=== PATIENT | female | born 1990 | race Hispanic/Latino ===

== ENCOUNTER 2024-09-09 10:57 | Emergency (ER) | payer MEDICAID ==
[~2024-09-09] VITALS: Ht 154.9 cm; Wt 81.2 kg
[2024-09-09 11:39] LABS: APPEARANCE,URINE CLEAR (CLEAR); BILIRUBIN,URINE NEGATIVE (NEGATIVE); COLOR,URINE COLORLESS (YELLOW); GLUCOSE, URINE (UA) NEGATIVE (NEGATIVE); KETONES,URINE NEGATIVE (NEGATIVE); LEUKOCYTE ESTERASE ,URINE 25 Leu/uL (NEGATIVE); NITRATE,URINE NEGATIVE (NEGATIVE); OCCULT BLOOD,URINE LARGE (NEGATIVE); PH,URINE 7.5 (5.0-8.0); PROTEIN,URINE NEGATIVE (NEGATIVE); UROBILINOGEN,URINE 0.2 mg/dL (0.2-1.0)
[2024-09-09 11:42] LABS: ADD UA MICROSCOPIC YES
[2024-09-09 11:46] LABS: BACTERIA,URINE FEW /HPF (None Seen); SQUAMOUS EPITHELIAL CELL,UR RARE /HPF (0-2); WBC,URINE 0-1 /HPF (0-1)
[2024-09-09 12:23] LABS: BASOPHILS # (AUTO) 0.04 K/uL (0.00-0.20); BASOPHILS % (AUTO) 0.8 % (0.0-5.0); EOSINOPHILS # (AUTO) 0.17 K/uL (0.00-0.70); EOSINOPHILS % (AUTO) 3.2 % (0.0-8.0); HEMATOCRIT 36.6 % (36-48); IMMATURE GRANULOCYTE ABSOLUTE 0.02 K/uL (0-1); LYMPHOCYTES # (AUTO) 1.8 K/uL (1.0-4.8); LYMPHOCYTES % (AUTO) 34.6 % (21.0-51.0); MEAN CORPUSCULAR HEMOGLOBIN 29.5 pg (27.0-33.0); MEAN CORPUSCULAR HGB CONC 33.1 g/dL (32.0-36.0); MEAN CORPUSCULAR VOLUME 89.3 fL (79-99); MONOCYTES # (AUTO) 0.4 K/uL (0.1-1.0); MONOCYTES % (AUTO) 7.3 % (3.0-13.0); NEUTROPHILS # (AUTO) 2.9 K/uL (1.8-7.7); NEUTROPHILS % (AUTO) 53.7 % (40.0-77.0); PLATELET COUNT (AUTO) 220 K/uL (130-400); RED CELL DISTRIBUTION WIDTH 12.4 % (11.0-15.5); WHITE BLOOD COUNT (AUTO) 5.3 K/uL (4.8-10.8)
[2024-09-09 12:27] LABS: CREATININE 0.5 mg/dL (0.5-1.0)
[2024-09-09] MEDS: acetaMINOPHEN 325 MG TAB PO ONE (12:38)
--- NOTE | 2024-09-09 12:38 | ERN ---
General Chief Complaint: Vaginal Bleeding Stated Complaint: VAGINAL BLEEDING IN Time Seen by MD: 12:05 Time Seen by Midlevel: 12:05 Source: patient History of Present Illness Initial Comments 34-year-old female presents to the emergency department due to vaginal bleeding onset today. Per patient she was seen last week at ED in [place] due to abdominal cramping. States she is currently six weeks , , OBGYN Dr. Thorpe. Patient reports a previous molar . Denies further significant PMHx. Allergies: Coded Allergies: No Known Drug Allergies (Unverified Allergy, Unknown, 09/09/24) Past Medical History Past Medical History: No Pertinent History Past Surgical History: Female( History) LMP: Aug 02, 2024 : 5 Para: 3 Aborts: 1 ROS Dictation Constitutional: Negative for fever,chills, and weight loss Eyes: Negative for injury, pain,redness, and discharge ENT: Negative for injury,pain or swelling Cardiovascular: Negative for chest pain, palpitations, and edema Respiratory: Negative for shortness of breath, cough, and wheezing, Abdomen/GI: Positive for lower abdominal cramping Negative for nausea, vomiting, diarrhea, and constipation Back: Negative for injury and pain : Positive for vaginal bleeding Negative for painful urination, or discharge MS/Extremity: Negative for injury and deformity Skin: Negative for rash, and discoloration Neuro: Negative for headache, weakness, numbness, tingling, and seizure Psych: Negative for suicide ideation, homicidal ideation, and hallucinations Physical Exam Physical Exam Dictation General: awake, alert, no acute distress Head/Face: Normocephalic, atraumatic Eyes: PERRL, EOMI, normal conjunctiva ENT: oral cavity clear, oral mucosa moist Neck: Supple, normal range of motion Cardiovascular: RRR, normal S1/S2 Respiratory: CTAB, no respiratory distress Abdomen: Soft, mild suprapubic tenderness, non-distended, no guarding or rebound. Skin: Warm, dry, normal turgor, no rash MS/Extremity: Pulses equal, no cyanosis, neurovascular intact, FROM Neuro: COAx4, GCS 15, strength 5/5, CN 2-12 intact, normal cerebellar exam, normal gait Psych: Normal behavior, mood, and affect normal Results Laboratory and Microbiology Lab and Micro Result Laboratory Tests Test 09/09/24 11:30 09/09/24 12:03 Urine Color COLORLESS (YELLOW) Urine Appearance CLEAR (CLEAR) Urine pH 7.5 (5.0-8.0) Urine Specific [place] 1.007 (1.001-1.031) Urine Protein NEGATIVE mg/dL (NEGATIVE) Urine Glucose (UA) NEGATIVE mg/dL (NEGATIVE) Urine Ketones NEGATIVE mg/dL (NEGATIVE) Urine Occult Blood LARGE (NEGATIVE) H Urine Nitrate NEGATIVE (NEGATIVE) Urine Bilirubin NEGATIVE mg/dL (NEGATIVE) Urine Urobilinogen 0.2 mg/dL (0.2-1.0) Urine Leukocyte Esterase 25 Stewart/uL (NEGATIVE) H Urine RBC 11-25 /HPF (0-1) H Urine WBC 0-1 /HPF (0-1) Urine Squamous Epithelial Cells RARE /HPF (0-2) Urine Bacteria FEW /HPF (None Seen) White Blood Count 5.3 K/uL (4.8-10.8) Red Blood Count 4.10 MIL/uL (4.00-5.50) Hemoglobin 12.1 g/dL (12.0-16.0) Hematocrit 36.6 % (36-48) Mean Corpuscular Volume 89.3 fL (79-99) Mean Corpuscular Hemoglobin 29.5 pg (27.0-33.0) Mean Corpuscular Hemoglobin Concent 33.1 g/dL (32.0-36.0) Red Cell Distribution Width 12.4 % (11.0-15.5) Platelet Count 220 K/uL (130-400) Mean Platelet Volume 10.9 fL (7.5-10.5) H Immature Granulocyte % (Auto) 0.4 % (0-1) Neutrophils (%) (Auto) 53.7 % (40.0-77.0) Lymphocytes (%) (Auto) 34.6 % (21.0-51.0) Monocytes (%) (Auto) 7.3 % (3.0-13.0) Eosinophils (%) (Auto) 3.2 % (0.0-8.0) Basophils (%) (Auto) 0.8 % (0.0-5.0) Neutrophils # (Auto) 2.9 K/uL (1.8-7.7) Lymphocytes # (Auto) 1.8 K/uL (1.0-4.8) Monocytes # (Auto) 0.4 K/uL (0.1-1.0) Eosinophils # (Auto) 0.17 K/uL (0.00-0.70) Basophils # (Auto) 0.04 K/uL (0.00-0.20) Absolute Immature Granulocyte (auto 0.02 K/uL (0-1) Nucleated Red Blood Cells 0.0 % (0.0-0.19) Sodium Level 140 mmol/L (136-145) Potassium Level 4.0 mmol/L (3.5-5.1) Chloride Level 107 mmol/L (101-111) Carbon Dioxide Level 27 mmol/L (21-32) Blood Urea Nitrogen 9 mg/dL (7-18) Creatinine 0.5 mg/dL (0.5-1.0) Glomerular Filtration Rate Calc 128 mL/min (>90) Random Glucose 85 mg/dL (70-105) Total Calcium 8.3 mg/dL (8.5-10.1) L Human Chorionic Gonadotropin, Quant 16678 mIU/mL (0-5) H Labs Reviewed?: Yes EKG/XRAY/US/CT/MRI Ultrasound Comment REASON: confirm IUP ORDERING PHYSICIAN: RAY LOPEZ MD PROCEDURE: OB <14 - US OB <14 WEEKS Exam Type: US OB <14 WEEKS Clinical Information: confirm IUP Comparison: None Findings: Uterus is anteverted. Intrauterine gestational sac is seen, sac implanted low within the endometrial cavity, questioning its future viability. At this time, crown-rump length measurement is 0.52 cm consistent with gestational age of 6 weeks 2 days and the embryo shows cardiac rate of 112 bpm. Ovaries are unremarkable. IMPRESSION: Low implantation of gestational sac with live embryo as noted. Short-term follow-up is recommended to confirm continued viability due to a low implantation. DICTATED BY: ASHLEY JAVED MDM: Differential diagnosis: Miscarriage, early bleeding, threatened Rationale: 34-year-old female presents to the emergency department due to vaginal bleeding onset today. Per patient she was seen last week at ED in [facility] due to abdominal cramping. States she is currently six weeks , , OBGYN Dr. Thorpe. Patient reports a previous molar . Denies further significant PMHx. Labs obtained CBC and chemistry within normal limits, hCG 40482. UA shows 25 leukocyte esterase and 11-25 RBCs, negative for urinary tract infection. Patient was administered acetaminophen in the ED. Pelvic ultrasound obtained shows a low implantation of gestational sac with live embryo as noted, short- term follow up recommended to confirm viability. Patient was educated on findings and diagnosis. Advised to follow up with PCP. Return to the emergency department if any worsening symptoms. Patient verbalized understanding. Pat ient stable for discharge. There are no social concerns with this patient. I independently interpreted the test that were performed, results were reviewed by me and considered findings on radiology if ordered. Medical management and examination interpretation discussions were had by me with other qualified healthcare professionals as indicated for the patient's care. ED Course Orders Procedure Category Date Status Time Cbc With Differential LAB 09/09/24 Complete 11:22 Basic Metabolic Panel LAB 09/09/24 Complete 11:22 Urinalysis Profile LAB 09/09/24 Complete 11:22 Hcg,Quantitative LAB 09/09/24 Complete 11:22 Type And Screen BBK 09/09/24 Complete 11:22 Us Ob <14 Weeks US 09/09/24 Resulted 11:59 Acetaminophen 325 Tab PHA 09/09/24 Complete (Tylenol 325mg Tab 12:30 Current Medications Medications (Trade) Dose Ordered Sig/Jose Route PRN Reason Start Time Stop Time Status Last Admin Dose Admin Acetaminophen (TYLenol 325MG TAB) 650 mg ONCE ONCE PO 09/09/24 12:30 09/09/24 12:31 DC 09/09/24 12:38 Vital Signs Date Time Temp Pulse Resp B/P (MAP) Pulse Ox O2 Delivery O2 Flow Rate FiO2 09/09/24 13:29 97.9 62 18 104/59 98 Room Air* 0 21 09/09/24 12:29 97.5 58 16 101/64 16 Room Air* 0 21 09/09/24 11:03 99.1 78 16 114/61 100 0 09/09/24 11:01 99.1 78 16 114/61 100 Room Air* 0 21 DX & DISP Disposition: Discharge Departure Impression: Primary Impression: Miscarriage, threatened, early Condition: Stable Additional Instructions: Discharge home. Rest. Follow up with primary care in 24 hours. Return to the ER for any acute changes or worsening symptoms. If any medications were prescribed take as directed. Okay to continue home medications unless otherwise discussed during your visit in the emergency room today. Patient was also advised to follow-up with primary care physician in 1 to 2 days for continued monitoring. Referrals: SELF,REFERRAL (PCP) I performed the substantive portion of the visit. I have reviewed and personally made and approve the management plan that is documented in the notes by myself or the CELESTINO. I acknowledge full responsibility for the patient's management plan. TAMMY LOBO September 09, 2024 12:38
[2024-09-09 13:29] VITALS: BP 104/59; PULSE 62; RESP 18; TEMP 97.8; O2SAT 98
--- NOTE | 2024-09-09 14:05 | HMCIMG ---
Exam Type: US OB <14 WEEKS Clinical Information: confirm IUP Comparison: None Findings: Uterus is anteverted. Intrauterine gestational sac is seen, sac implanted low within the endometrial cavity, questioning its future viability. At this time, crown-rump length measurement is 0.52 cm consistent with gestational age of 6 weeks 2 days and the embryo shows cardiac rate of 112 bpm. Ovaries are unremarkable. IMPRESSION: Low implantation of gestational sac with live embryo as noted. Short-term follow-up is recommended to confirm continued viability due to a low implantation.
== END 2024-09-09 14:12 | disposition home or self-care (01) ==
LOC: EDH 10:57
DX: O20.0 Threatened abortion (principal); Z3A.01 Less than 8 weeks gestation of pregnancy; Z98.890 Other specified postprocedural states
CPT/HCPCS: 36415; 76801; 80048; 81001; 84702; 85025; 86850; 86900; 86901; 99284